=== PATIENT | male | born 1990 | race African-American/Black ===

== ENCOUNTER 2019-07-26 11:14 | Emergency (ER) | payer BC ==
[~2019-07-26] VITALS: Ht 180.3 cm; Wt 134.0 kg
[2019-07-26] MEDS ORDERED: LISINOPRIL 10 MG TABLET PO ONE (11:30)
[2019-07-26] MEDS ORDERED: ACETAMINOPHEN 500 MG TABLET PO ONE (11:30)
[2019-07-26] MEDS ORDERED: hydroCHLOROthiazide 12.5 MG CAPSULE PO ONE (11:30)
[2019-07-26] MEDS ORDERED: LISI1TAB20 PO (11:39)
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
--- NOTE | 2019-07-26 11:51 | RAD ---
Examination: FOOT RIGHT 3V, ANKLE RIGHT 3V History: Foot and ankle pain after 1 day. Comparison/Correlation: None Findings: Total 3 images of the right foot and 3 images of the right ankle were obtained. Spurring of the medial malleolus is present. Ankle joint mortise is unremarkable. No acute fracture or bone destruction. Impression: No acute process. Electronically signed by: Lalo Jamison MD (07/26/2019 11:48 AM) [id number]
[2019-07-26 12:31] VITALS: BP 222/110
== END 2019-07-26 12:32 | disposition home or self-care (01) ==
LOC: ER 11:14
DX: S90.01XA Contusion of right ankle, initial encounter (principal); I10 Essential (primary) hypertension; Y33.XXXA Other specified events, undetermined intent, initial encounter; Y93.89 Activity, other specified; Y92.488 Other paved roadways as the place of occurrence of the external cause; Y99.8 Other external cause status
CPT/HCPCS: 73610; 73630; 99284